=== PATIENT | female | born 1980 | race Caucasian/White ===

== ENCOUNTER 2019-03-22 10:22 | Emergency (ER) | payer OTHER ==
[~2019-03-22] VITALS: Ht 167.6 cm; Wt 145.2 kg
[2019-03-22] MEDS ORDERED: AUGMENTIN 875-1 EACH PO (10:36)
[2019-03-22 10:55] VITALS: BP 143/92
== END 2019-03-22 11:06 | disposition home or self-care (01) ==
LOC: M.ERS 10:22
DX: S81.812A Laceration without foreign body, left lower leg, initial encounter (principal); W54.0XXA Bitten by dog, initial encounter; Y93.89 Activity, other specified; Y92.89 Other specified places as the place of occurrence of the external cause; Y99.8 Other external cause status